=== PATIENT | male | born 1995 | race American Indian/Alaskan Native ===

== ENCOUNTER 2017-09-25 17:45 | Emergency (ER) | payer BC ==
[2017-09-25 17:59] VITALS: BP 136/72
[2017-09-25] MEDS ORDERED: TORADOL IM ONE (19:59)
[2017-09-25] MEDS ORDERED: FLEXERIL PO ONE (19:59)
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
== END 2017-09-25 21:25 | disposition home or self-care (01) ==
LOC: ED 17:45
DX: S16.1XXA Strain of muscle, fascia and tendon at neck level, initial encounter (principal); S29.012A Strain of muscle and tendon of back wall of thorax, initial encounter; V49.59XA Passenger injured in collision with other motor vehicles in traffic accident, initial encounter; Y93.89 Activity, other specified; Y92.89 Other specified places as the place of occurrence of the external cause; Y99.8 Other external cause status
CPT/HCPCS: 72125; 96372; 99284; J1885